=== PATIENT | male | born 1950 | race African-American/Black ===

== ENCOUNTER → 2017-08-24 | Outpatient (CLI) | payer OTHER ==
--- NOTE | 2017-08-24 16:06 | KCIC ---
Renal ultrasound History:Stage III renal disease. Technique: Sonographic imaging of both kidneys. Findings: Aorta: Obscured by bowel gas. Inferior vena cava: Obscured by bowel gas. Right kidney measures 10.0 cm. No evidence of hydronephrosis or shadowing calculus. Slightly lobular contour. Left kidney measures 10.5 cm longitudinal. No evidence of hydronephrosis or shadowing calculus. Slightly lobulated contour. Urinary bladder: Poorly evaluated, patient had voided. Ureteric jets are not demonstrated. Impression: Slightly lobulated renal contours could indicate cortical atrophy. No other significant sonographic abnormality. Electronically signed by: Earl Minor MD (08/24/2017 4:03 PM) [id number]
== END | disposition home or self-care (01) ==
LOC: KCIC US 11:28
PROVIDERS: ATTEND Internal Medicine Nephrology
DX: N18.3 Chronic kidney disease, stage 3 (moderate) (principal)
CPT/HCPCS: 76770